=== PATIENT | male | born 1965 | race Caucasian/White ===

== ENCOUNTER 2017-10-05 05:12 | Inpatient (IN) | payer OTHER ==
[~2017-10-05] VITALS: Ht 177.8 cm; Wt 94.4 kg
[~2017-10-05 05:12] MED LIST: ALEV220T14 PO
[2017-10-05] MEDS ORDERED: VANCOMYCIN 1000 MG/NS 250 ML (for <70 kg) IV SCH ×2 (05:45)
[2017-10-05] MEDS ORDERED: METOPROLOL TARTRATE 25 MG TAB PO PRN (05:45)
[2017-10-05] MEDS ORDERED: POVIDONE IODINE 5% (ANTISEPSIS KIT) 4 APPLICATIONS EACH NARE PRN (05:45)
[2017-10-05] MEDS ORDERED: CHLORHEXIDINE GLUCONATE 2 % 1 PACK (2 CLOTHS) TOPICAL PRN (05:45)
[2017-10-05] MEDS ORDERED: ceFAZolin 2 GM PREMIX 50 ML IV SCH (05:45)
[2017-10-05] MEDS ORDERED: CHLORHEXIDINE GLUCONATE 4% SOLN 120 ML BTL TOPICAL SCH (05:45)
[2017-10-05] MEDS ORDERED: SODIUM CHLORID 0.9% 500 ML IV PRN (05:45)
[2017-10-05] MEDS ORDERED: LACTATED RINGER'S 1000 ML IV PRN (05:45)
[2017-10-05] MEDS ORDERED: VANCOMYCIN 1 GM/200 ML INJ 200 ML IV ONE (06:20)
[2017-10-05] MEDS ORDERED: GENTAMICIN SULFATE 80 MG/2 ML VIAL ONE (07:03)
[2017-10-05] MEDS ORDERED: ACETAMINOPHEN 1000 MG/100 ML 100 ML IV ONE (07:44)
[2017-10-05] MEDS ORDERED: FAMOTIDINE 20 MG/2 ML VIAL ONE (07:44)
[2017-10-05] MEDS ORDERED: MIDAZOLAM HCL 2 MG/2 ML VIAL ONE (07:46)
[2017-10-05] MEDS ORDERED: BUPIVACAINE HCL PF 0.5% 30 ML VIAL ONE (07:50)
[2017-10-05] MEDS ORDERED: DEXAMETHASONE SOD PHOS 4 MG/ML VIAL ONE (07:50)
[2017-10-05] MEDS ORDERED: SODIUM CHLORIDE 0.9% IV SCH (08:00)
[2017-10-05] MEDS ORDERED: TRANEXAMIC ACID IV SCH (08:00)
[2017-10-05] MEDS ORDERED: FAMOTIDINE 20 MG/2 ML VIAL IV ONE (09:00)
[2017-10-05] MEDS ORDERED: MIDAZOLAM HCL 5 MG/5 ML VIAL IV ONE (09:00)
[2017-10-05] MEDS ORDERED: ACETAMINOPHEN/HYDROcodone 325 MG/10 MG TAB PO PRN (11:15)
[2017-10-05] MEDS ORDERED: ZOLPIDEM TARTRATE 5 MG TAB PO PRN (11:15)
[2017-10-05] MEDS ORDERED: diphenhydrAMINE HCL 25 MG CAP PO PRN (11:15)
--- NOTE | 2017-10-05 11:18 | PD.OP ---
cc: Shadi Santos MD Operative Report Date of Surgery: Oct 05, 2017 Preoperative Diagnosis: Osteoarthritis right shoulder Postoperative Diagnosis: Same Procedure: Right total shoulder replacement arthroplasty Anesthesia: Gen. with anterior interscalene block for pain control Surgeon: Shadi Santos Kitchenwhere Maker(s): PRESTON Cummins Operation and Findings: EBL: 400 cc. NOTE: Faby Cummins PA-C was present for the entire surgical procedure as my drafter assistant. In my medical opinion her skill and care was necessary for proper management of this patient. INDICATION: This patient is a 52-year-old male with long-standing multiyear arthritis right shoulder treated conservatively with medications, injections, physical therapy and altered activities. He is having progressive pain in the right shoulder with daily activities. He presents for surgical treatment. COMPONENTS: [employer] Equinox. STEM: 15 mm, press-fit HEAD: 50 mm x 23 mm, Aleksey GLENOID: Large cemented keeled PROCEDURE: The patient brought the operating room and anesthetized in the supine position. The patient was placed on a standard table. The patient is placed in a semi-beachchair position, and the left shoulder was over the edge of the table allowing it to be brought into full extension. The head was placed in the Morales adapter and secured properly. The right arm and shoulder was scrubbed with alcohol followed by Hibiclens followed by chloro prep and draped sterilely. And antibiotics were given within 1 hour time window. A timeout was done. A deltopectoral incision was made. The cephalic vein was mobilized with the deltoid. The proximal humerus was exposed. The biceps tendon was identified and protected. The subscapularis muscle was identified. A stay suture was placed within the subscapularis tendon. The tendon was released approximately 8 mm from its attachment. The inferior and anterior capsules were released. The head was cut with approximately 30 of retroversion. That head was removed. The glenoid was exposed further. This was sized for a large glenoid component. Provisional measuring and preparation was done. A temporary glenoid component was positioned. The proximal humerus was exposed. The supraspinatus tendon was protected. A towboat pilot hole was placed within the humerus and progressively reamed up to a size 15 reamer anticipating the same size stem. This was then broached. A trial reduction showed that we were able to use a proper head size. Balancing was very satisfactory. Retroversion was very satisfactory. Overall fit was quite good. The final preparation of the glenoid was accomplished. The glenoid component was cemented with methylmethacrylate. Excessive cement was removed. The component was quite stable. The attention was directed to the humerus. The final component was positioned. The final head was trialed and a trial reduction showed excellent balancing. Final components were assembled and impacted. The shoulder was reduced. The shoulder was stable to approximately 60 of external rotation. With traction we could sublux the humeral head approximately one third the way down along the edge of the glenoid. This was stable in internal rotation and external rotation. The wound was irrigated copious he. Hemostasis was controlled. The subscapularis muscle was repaired with interrupted #2 Tycron sutures. A small stay suture was placed in the deltopectoral interval. Subcutaneous tissue was approximated with 2-0 Vicryl suture and skin with running intradermal 3-0 Vicryl followed by benzoin and Steri-Strips. The sponge count, needle counts and instrument counts were all correct. Sterile dressing was applied. The patient placed into a sling. The patient was awakened and taken to the recovery room in satisfactory condition The wound was irrigated copiously. Hemostasis was controlled. The deltopectoral interval was tacked down with 2-0 Vicryl suture. Subcutaneous tissue was approximated with 2-0 Vicryl and skin with running #3-0 Vicryl followed by benzoin and Steri-Strips. Sponge count needle counts and sponge counts were all correct. The patient tolerated procedure well was taken to recovery room in satisfactory condition. FINDINGS: There was severe osteoarthritis. There was some posterior erosion. We reamed the glenoid creating slightly more anteversion than the patient's anatomy based on the erosion. The final fit was excellent. There was a small tear of the supraspinatus tendon which appeared chronic Shadi Santos MD Oct 05, 2017 11:18
[2017-10-05] MEDS ORDERED: HYDR-3583 PO (11:23)
[2017-10-05] MEDS ORDERED: Post-op Orders (for Pharmacy) XX ONE (11:39)
[2017-10-05] MEDS ORDERED: *ONDANSETRON 4 MG VIAL PERIprocedural Use ONLY ONE (11:50)
[2017-10-05] MEDS ORDERED: DEXAMETHASONE SOD PHOS 4 MG/ML VIAL IV ONE (12:00)
[2017-10-05] MEDS: LACTATED RINGER'S 1000 ML INJ 1,000 ML IV SCH ×2 (12:00→21:49)
[2017-10-05] MEDS ORDERED: ROCURONIUM INJ 50 MG/5 ML SYRINGE IV PUSH ONE (12:00)
[2017-10-05] MEDS ORDERED: LIDOCAINE HCL 1% PF 5 ML SYRINGE OTHER ONE (12:00)
[2017-10-05] MEDS ORDERED: ePHEDrine/NS 25 MG/5 ML SYRINGE IV ONE (12:00)
[2017-10-05] MEDS ORDERED: PROPOFOL 200 MG/20 ML AMP IV ONE (12:00)
[2017-10-05] MEDS ORDERED: ONDANSETRON HCL 4 MG/2 ML VIAL IV ONE (12:00)
--- NOTE | 2017-10-05 12:18 | RADRPT ---
EXAM DATE/TIME: 10/05/2017 11:44 [facility] COMPARISON: No previous studies available for comparison. INDICATIONS : Post right shoulder surgery. MEDICAL HISTORY : None. SURGICAL HISTORY : None. ENCOUNTER: Initial ACUITY: 1 day PAIN SCORE: 0/10 LOCATION: Right shoulder FINDINGS: Single frontal view of the right shoulder demonstrates metallic prosthesis in the proximal humerus an d a thin metallic density superimposed upon the. There is widening of the a.c. joint suggesting parti al resection of the distal clavicle. The visualized right upper ribs are intact. CONCLUSION: Surgical changes from right shoulder arthroplasty. Nelson Layton MD on October 05, 2017 at 12:14 Board Certified Radiologist. This report was verified electronically.
[2017-10-05] MEDS ORDERED: DO NOT ADM ANY ANTICOAGULANT DRUGS PRN (15:00)
[2017-10-05 16:12] VITALS: BP 116/68; PULSE 58; RESP 18; TEMP 98.3; O2SAT 94
[2017-10-05 16:30] VITALS: BP 92/57; PULSE 74; RESP 18; TEMP 97; O2SAT 94
[2017-10-05] MEDS: ACETAMINOPHEN/HYDROcodone 325 MG/10 MG TAB PO PRN (18:23)
[2017-10-05 19:50] VITALS: BP 119/60; PULSE 61; RESP 17; TEMP 97.2; O2SAT 94
[2017-10-05] MEDS: DOCUSATE SODIUM 50 MG/SENNA 8.6 MG TAB PO SCH (20:05)
[2017-10-05] MEDS: MAGNESIUM HYDROXIDE SUSP 30 ML CUP PO PRN (20:05)
[2017-10-06] MEDS: ACETAMINOPHEN/HYDROcodone 325 MG/10 MG TAB PO PRN ×2 (00:44→05:17)
[2017-10-06 00:55] VITALS: BP 134/73; PULSE 52; RESP 17; TEMP 98.6; O2SAT 97
[2017-10-06 04:35] VITALS: BP 126/67; PULSE 50; RESP 17; TEMP 97.9; O2SAT 97
[2017-10-06] MEDS: MORPHINE SULFATE 8 MG/ML INJ IV PUSH PRN ×3 (07:59→20:20)
[2017-10-06 08:00] VITALS: BP 119/70; PULSE 55; RESP 17; TEMP 98; O2SAT 97
[2017-10-06] MEDS: CARISOPRODOL 350 MG TAB PO PRN ×2 (09:43→19:08)
[2017-10-06] MEDS: DOCUSATE SODIUM 50 MG/SENNA 8.6 MG TAB PO SCH ×2 (09:44→20:15)
[2017-10-06] MEDS: MULTIVITAMINS/MINERALS THERAPEUTIC TAB PO SCH (09:45)
[2017-10-06] MEDS ORDERED: ACETAMINOPHEN/HYDROcodone 325 MG/10 MG TAB PO PRN ×2 (09:45)
--- NOTE | 2017-10-06 09:49 | HHI.DCPOC ---
Discharge Care Plan Diagnosis: (1) Osteoarthritis of right shoulder Your Health Problems Are: Difficulty with ADL Incision/Drains Swelling Goals to Promote Your Health * To prevent worsening of your condition and complications * To maintain your health at the optimal level Directions to Meet Your Goals Take your medications as prescribed Follow your dietary instruction Follow activity as directed Keep your appointments as scheduled Take your immunizations and boosters as scheduled If your symptoms worsen call your PCP, if no PCP go to Urgent Care Center or Emergency Room Smoking is Dangerous to Your Health. Avoid second hand smoke Call the 24-hour hour crisis hotline for domestic abuse at Faby Cummins Oct 06, 2017 09:49
[2017-10-06] MEDS: ONDANSETRON HCL 4 MG/2 ML VIAL IVP PRN ×2 (09:51→17:42)
--- NOTE | 2017-10-06 09:51 | HHI.DS ---
Discharge Summary Admission Date Oct 05, 2017 at 05:12 Discharge Date: Oct 07, 2017 Admitting Diagnosis see below Diagnosis: (1) Osteoarthritis of right shoulder Diagnosis: Principal ICD Codes: M19.011 - Primary osteoarthritis, right shoulder Procedures Right total shoulder arthroplasty Brief History This is a 52 year old male patient Hospital Course Surgical treatment was performed on the day of admission without complication. He recovered well in PACU and was transferred to the orthopaedic floor. Pain was controlled with IV an oral medications though these had to be adjusted frequently as pain control varied. He was compliant with his sling and all restrictions. After 2 days he was found to be stable and discharged home. He was given prescriptions for percocet 7.5mg and Soma 350. 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 No external rotation past 20 degrees for 4 weeks postop. 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 No external rotation >20 degrees New Medications: Carisoprodol (Carisoprodol) 350 Mg Tablet 350 MG PO Q8H PRN for MUSCLE SPASMS, #30 TAB 0 Refills Oxycodone HCl/Acetaminophen (Oxycodon-Acetaminophen 7.5-325) 7.5 Mg-325 Mg Tablet 1 TAB PO Q4H PRN for PAIN SCALE 1 TO 7 for 7 Days, #42 TAB 0 Refills Continued Medications: Naproxen Sodium (Aleve Arthritis) 220 Mg Tab 220 MG PO PRN for pain, TAB Faby Cummins Oct 06, 2017 09:51
[2017-10-06] MEDS: LACTATED RINGER'S 1000 ML INJ 1,000 ML IV SCH ×2 (11:32→23:18)
[2017-10-06 11:47] VITALS: BP 151/70; PULSE 77; RESP 18; TEMP 98.6; O2SAT 99
--- NOTE | 2017-10-06 12:28 | PD.ORT.PN ---
Subjective Subjective Remarks Patient states that his shoulder block wore off late last night. He has spasms and sever anterior burning pains. he denies any radiating arm pain to the hand. he denies any numbness or tingling. He was nauseated this morning but that has improved. He has questions about surgery. Objective Vitals Vital Signs Date Time Temp Pulse Resp B/P (MAP) Pulse Ox O2 Delivery O2 Flow Rate FiO2 10/06/17 11:47 98.6 77 18 151/70 (97) 99 10/06/17 08:00 98.0 55 17 119/70 (86) 97 10/06/17 04:35 97.9 50 17 126/67 (86) 97 10/06/17 00:55 98.6 52 17 134/73 (93) 97 10/05/17 19:50 97.2 61 17 119/60 (79) 94 10/05/17 16:30 97.0 74 18 92/57 (69) 94 10/05/17 16:12 98.3 58 18 116/68 (84) 94 10/05/17 15:00 97.1 51 13 134/70 (91) 98 Room Air 10/05/17 14:30 51 16 126/64 (84) 92 Room Air 10/05/17 14:00 50 16 120/63 (82) 93 Room Air 10/05/17 13:30 53 16 118/66 (83) 94 Nasal Cannula 2 10/05/17 13:00 52 14 128/66 (86) 92 Nasal Cannula 2 10/05/17 12:45 50 12 127/73 (91) 93 Nasal Cannula 2 10/05/17 12:30 59 18 126/74 (91) 97 Nasal Cannula 2 I/O 10/05/17 10/05/17 10/05/17 10/06/17 10/06/17 10/06/17 07:00 15:00 23:00 07:00 15:00 23:00 Intake Total 1500 ml 1117 ml 960 ml Output Total 400 ml 800 ml Balance 1100 ml 317 ml 960 ml Intake Oral 680 ml 960 ml IV Total 1500 ml 437 ml Output Urine Total 800 ml Estimated Blood Loss 400 ml # Voids 4 3 # Bowel Movements 0 0 Procedures Right total shoulder arthroplasty Objective Remarks Laying in bed Mild distress VSS - hypertension RUE Dressing c/d/i, no new drainage, moderate swelling, some spasm deltoid +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 Continue Morphine but I encourage pt to rely less on this if he plans on discharge home in next 24 hours. Change [place] 10 to Percocet 7.5mg q 4hours. Continue Soma 350mg q8h as needed for spasm. Hold dressing changes unless saturated. Sling for comfort. Patient educated no ext rotation past 20 degrees. Likely will not discharge tomorrow considering pain control. F/U in 2 weeks as scheduled. Faby Cummins Oct 06, 2017 12:28
[2017-10-06] MEDS ORDERED: oxyCODONE/ACETAMINOPHEN 7.5 MG/325 MG TAB PO PRN (12:30)
[2017-10-06] MEDS: oxyCODONE/ACETAMINOPHEN 7.5 MG/325 MG TAB PO PRN ×3 (14:22→22:53)
[2017-10-06 15:38] VITALS: BP 148/74; PULSE 53; RESP 18; TEMP 96.5; O2SAT 100
[2017-10-06 20:00] VITALS: BP 130/74; PULSE 62; RESP 17; TEMP 99.7; O2SAT 96
[2017-10-07] VITALS: BP 120/72; PULSE 57; RESP 16; TEMP 99.4; O2SAT 94
[2017-10-07] MEDS: CARISOPRODOL 350 MG TAB PO PRN ×2 (03:44→14:01)
[2017-10-07] MEDS: oxyCODONE/ACETAMINOPHEN 7.5 MG/325 MG TAB PO PRN ×3 (03:45→12:13)
[2017-10-07 08:00] VITALS: BP 131/69; PULSE 61; RESP 18; TEMP 98.9; O2SAT 97
[2017-10-07] MEDS: MAGNESIUM HYDROXIDE SUSP 30 ML CUP PO PRN (08:00)
[2017-10-07] MEDS: DOCUSATE SODIUM 50 MG/SENNA 8.6 MG TAB PO SCH (08:00)
[2017-10-07] MEDS: MULTIVITAMINS/MINERALS THERAPEUTIC TAB PO SCH (08:00)
[2017-10-07] MEDS ORDERED: OXYC1TAB35 PO (08:18)
[2017-10-07] MEDS ORDERED: CARI350T25 PO (08:18)
--- NOTE | 2017-10-07 08:24 | PD.ORT.PN ---
Subjective Subjective Remarks He states he had a much better night last night. He did not have to use the morphine. He did better on the oxycodone. He denies any new radiating arm pain to the hand. He denies any numbness or tingling. He is ready for discharge home. No new CP or SOB. Objective Vitals Vital Signs Date Time Temp Pulse Resp B/P (MAP) Pulse Ox O2 Delivery O2 Flow Rate FiO2 10/07/17 08:00 98.9 61 18 131/69 (89) 97 10/07/17 00:00 99.4 57 16 120/72 (88) 94 10/06/17 20:00 99.7 62 17 130/74 (92) 96 10/06/17 15:38 96.5 53 18 148/74 (98) 100 10/06/17 11:47 98.6 77 18 151/70 (97) 99 I/O 10/06/17 10/06/17 10/06/17 10/07/17 10/07/17 10/07/17 07:00 15:00 23:00 07:00 15:00 23:00 Intake Total 960 ml 2080 ml 900 ml Balance 960 ml 2080 ml 900 ml Intake Oral 960 ml 2080 ml 800 ml IV Total 100 ml # Voids 3 4 1 # Bowel Movements 0 0 Procedures Right total shoulder arthroplasty Objective Remarks Sitting up in chair More comfortable, NAD VSS - hypertension RUE Dressing c/d/i, no new drainage, moderate swelling, some spasm deltoid +motor 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 Ok to d/c home today. Will change home script to Percocet 7.5mg and add script for Soma 350. Hold dressing changes unless saturated. Sling for comfort. Patient educated no ext rotation past 20 degrees. F/U in 2 weeks as scheduled. No HHC needed Faby Cummins Oct 07, 2017 08:24
[2017-10-07] MEDS: LACTATED RINGER'S 1000 ML INJ 1,000 ML IV SCH (11:04)
[2017-10-07 12:12] VITALS: BP 128/72; PULSE 53; RESP 18; TEMP 98.5; O2SAT 98
== END 2017-10-07 14:37 | disposition home or self-care (01) | DRG 483 ==
LOC: HSDI 05:12 → N06A 16:15
PROVIDERS: ADMIT Orthopaedic Surgery Orthopaedic Surgery of the Spine; ATTEND Orthopaedic Surgery Orthopaedic Surgery of the Spine
PROC: 3E0T3BZ Introduction of Anesthetic Agent into Peripheral Nerves and Plexi, Percutaneous Approach (ICD-10-PCS; 2017-10-05)
PROC: 0RRJ0JZ Replacement of Right Shoulder Joint with Synthetic Substitute, Open Approach (ICD-10-PCS; principal; 2017-10-05 08:20)
DX: M19.011 Primary osteoarthritis, right shoulder (principal); E78.5 Hyperlipidemia, unspecified; M50.30 Other cervical disc degeneration, unspecified cervical region; M75.101 Unspecified rotator cuff tear or rupture of right shoulder, not specified as traumatic; Z96.641 Presence of right artificial hip joint
CPT/HCPCS: 73020; 94150; C1776; J0131; J0690; J1100; J1580; J2250; J2270; J2405; J3010; J3370; J7120